=== PATIENT | female | born 1950 ===

== ENCOUNTER 2025-08-22 06:00 | Day surgery (SDC) | payer OTHER ==
[2025-08-14 09:07] LABS: URINE APPEARANCE Clear; URINE BILIRRUBIN Negative (NEGATIVE); URINE BLOOD Negative; URINE COLOR Yellow; URINE GLUCOSE Negative (NEGATIVE); URINE KETONE Negative (NEGATIVE); URINE LEUKOCYTE Negative; URINE NITRATE Negative; URINE PROTEIN Negative (NEGATIVE); URINE UROBILINOGEN 0.2 E.U./dl
[2025-08-14 09:14] LABS: URINE BACTERIA 268.6 uL (0.0-1933); URINE EPITHELIAL CELLS 16.8 uL (0.0-38.8); URINE RBC 6.4 uL (0.0-20.8); URINE WBC 6.9 uL (0.0-23.2)
[2025-08-14 09:17] VITALS: BP 150/77
[2025-08-14 09:26] LABS: URINE CAST 0.00 uL (0.0-1.40)
[2025-08-14 09:30] LABS: INR 0.99
[2025-08-14 09:33] LABS: BASO % 0.5 % (0.1-1.2); EOS # 0.10 (0.04-0.54); EOS % 1.3 % (0.7-7.0); LYMPH # 2.92 (1.18-3.74); LYMPH % 39.2 % (19.3-53.1); MEAN PLATELET VOLUME 11.00 fl (9.4-12.4); MONO # 0.40 (0.24-0.82); MONO % 5.4 % (4.7-12.5); NEUT # 3.97 (1.56-6.13); NEUT % 53.3 % (34.0-71.1); RED CELL DISTRIBUTION WIDTH 14.6 % (11.6-14.4)
[2025-08-14 09:40] LABS: ALT/SGPT 28.0 U/L (12-78); AST/SGOT 17.0 U/L (15-37); BILIRUBIN TOTAL 0.61 mg/dL (0.3-1.2); BUN CREA RATIO 19.0 (7.0-25.0); CREATININE SERUM 0.77 mg/dL (0.55-1.02); GFR 73.08; GLOBULINA 3.7 G/DL (2.4-3.5); GLUCOSE FASTING 91.0 mg/dL (65-100); OSMOLALITY SERUM 285.0 MOSM/KG (275-295)
[~2025-08-22] VITALS: Ht 160 cm; Wt 72.1 kg
[~2025-08-22 06:00] MED LIST: ACID REDUCER20 M1 PO; LOSARTAN-HCTZ1 EAC2 PO; MULTIPLE VITAM1 EAC2 PO; SYNTHROID150 MCG PO; ZOCOR20 MG PO
[2025-08-22] MEDS ORDERED: CEFAZOLIN SODIUM 1,000 MG VIAL ONE (07:06)
[2025-08-22] MEDS ORDERED: POVIDONE-IODINE 118 ML BOTT TOP ONE (07:09)
[2025-08-22] MEDS ORDERED: DOXYCYCLINE HY100 M2 PO (08:46)
[2025-08-22] MEDS ORDERED: IBU600 MG PO (08:47)
== END 2025-08-22 12:40 | disposition home or self-care (01) ==
LOC: CIR.AMB 06:00
PROVIDERS: ATTEND Obstetrics & Gynecology
DX: D25.0 Submucous leiomyoma of uterus (principal); N84.0 Polyp of corpus uteri; N95.0 Postmenopausal bleeding